=== PATIENT | male | born 1935 | race Caucasian/White ===

== ENCOUNTER 2020-02-01 11:33 | Inpatient (IN) | payer MEDICARE, OTHER ==
[~2020-02-01 11:33] MED LIST: Heparin 10,000 UNITS/ 10 ML VIAL ONE
[2020-02-01 12:21] LABS: Hemoglobin 12.5 g/dL (14.0-18.0); Mean Corpuscular HGB CONC 31.5 g/dL (32.0-36.0); Mean Corpuscular Hemoglobin 33.6 pg (27.0-31.0); Mean Platelet Volume 9.4 fL (7.4-10.4); Platelet Count 263 thou/uL (130-400); RBC Distribution Width 14.4 % (11.5-14.5); Red Blood Cell (RBC) Count 3.71 mill/uL (4.70-6.10); White Blood Cell (WBC) Count 11.2 thou/uL (4.8-10.8)
[2020-02-01 12:22] LABS: #Eosinphils 0.2 thou/uL (0.0-0.7); #Monocytes 0.8 thou/uL (0.11-0.59); #Neutrophils 9.2 thou/uL (1.40-6.50); %Basophils 0.4 % (0.0-1.0); %Eosinophils 1.7 % (0.0-10.0); %Lymphocytes 8.8 % (21.0-51.0); %Monocytes 7.4 % (0.0-10.0); %Neutrophils 81.8 % (42.0-75.0)
--- NOTE | 2020-02-01 12:29 | RAD ---
EXAM: CHEST ONE VIEW HISTORY: Altered mental status. COMPARISON: 01/12/2020 FINDINGS: Cardiac silhouette is magnified by projection but stable in size. Pulmonary vasculature is within nor mal limits. There is a suggested nodular density at the right lung base on prior exam which has a less nodular appearance, but parenchymal airspace opacity is again seen at the right lung base which could be related to atelectasis or pneumonitis. Follow-up to resolution is recommended. The left lung remains clear. No other interval change IMPRESSION: Patchy parenchymal airspace opacity right lung base. This may represent volume loss or pneumonitis. F ollow-up to resolution is recommended. A more nodular opacity was seen on the prior exam, but this nodular opacity is not appreciated on today's exam.
--- NOTE | 2020-02-01 12:31 | RAD ---
Exam: XR Foot Rt 2 View HISTORY: Large red warm mass dorsal right foot. Fever. COMPARISON: 01/12/2020 FINDINGS: The toes are held in flexion which limits evaluation. No fracture or definite dislocation is apprecia eugenio. Subcutaneous soft tissue swelling about the foot which is greater dorsally has improved. More focal area of soft tissue swelling distal dorsal forefoot does persist. No other interval change. IMPRESSION: 1. Improvement in subcutaneous soft tissue swelling about the foot and ankle. Prominent area of soft tissue swelling dorsal aspect of the forefoot is again seen, but this has also improved. 2. No acute osseous abnormality visualized.
[2020-02-01 12:32] LABS: Bicarbonate (HCO3v) 18.9 mmol/L (22.0-28.0); CO2 Tension (PvCO2) 43.3 mmHg (40.0-50.0); Calcium, Ionized 0.94 mmol/L (1.15-1.33); Chloride 109 mmol/L (98-107); Hemoglobin - Calc 11.2 g/dL (14.0-18.0); Potassium 6.8 mmol/L (3.5-5.1); Sodium 135 mmol/L (138-145); T. Carbon Dioxide 20.2 mmol/L (22.0-28.0); vO2 Saturation-calc 57.9 % (60.0-85.0)
[2020-02-01 12:37] LABS: MDiff Complete? YES; Macrocytosis SLIGHT = 6-15 cells (100X) (0-5/hpf); Platelet Morphology Comment Appears Adequate; Polychromasia SLIGHT = 2-3 cells (100X) (0-2/hpf)
[2020-02-01 12:47] LABS: ALT (SGPT) 22 U/L (8-55); AST (SGOT) 19 U/L (5-34); Albumin 2.7 g/dL (3.4-4.8); Alkaline Phosphatase 116 U/L (40-110); Anion Gap 20 mmol/L (10-20); Bilirubin, Total 0.3 mg/dL (0.2-1.2); Calc. Creatinine Clearance 0 mL/min (70-130); Calcium 7.7 mg/dL (7.8-10.44); Carbon Dioxide 18 mmol/L (23-31); Chloride 106 mmol/L (98-107); Estimated GFR-MDRD 7; Glucose 121 mg/dL (83-110); Protein, Total 5.7 g/dL (5.8-8.1); Sodium 137 mmol/L (136-145)
[2020-02-01 13:02] LABS: BUN (Urea Nitrogen) 137 mg/dL (8.4-25.7)
[2020-02-01 13:03] LABS: Potassium 7.1 mmol/L (3.5-5.1)
[2020-02-01] MEDS ORDERED: HumaLOG 300 UNITS/3 ML VIAL ONE (13:11)
[2020-02-01] MEDS ORDERED: Vancomycin 1 GM/200 ML BAG ONE (13:11)
[2020-02-01] MEDS ORDERED: Insulin Regular 300 UNITS/3 ML VIAL ONE (13:13)
[2020-02-01] MEDS ORDERED: Cefepime 2 GM VIAL ONE (13:14)
[2020-02-01] MEDS ORDERED: Dextrose 50% Abboject 50 ML SYRINGE ONE (13:14)
[2020-02-01] MEDS ORDERED: Calcium Gluc 4.6 MEQ/10 ML (100 MG/ML) ONE (13:14)
[2020-02-01] MEDS ORDERED: Sodium Bicarb 50 MEQ/50 ML Abboject 8.4% SYRINGE ONE (13:14)
[2020-02-01] MEDS ORDERED: Norepinephrine 8 MG/0.9% NS 250 ML ONE ×2 (13:22→21:45)
--- NOTE | 2020-02-01 13:26 | CT ---
CT HEAD WITHOUT CONTRAST: INDICATION: Mental status change. COMPARISON: Comparison is made to recent head CT of 01/12/2020. FINDINGS: Cortical atrophy. Encephalomalacia of the right frontal lobe again noted. Ventricles remain normal size. Ischemic changes in the white matter with old lacunar infarct in the left basal ganglia again noted. No acute mass, infarct, or hemorrhage. IMPRESSION: No acute process. Stable chronic findings. POS: OFF
[2020-02-01] MEDS ORDERED: Ketamine 50 MG/ML (10ML VIAL) ONE (13:29)
[2020-02-01 14:15] LABS: Actual Bicarbonate (HCO3a) 17.5 mEq/L (22-28); Analyzer IN Cardio ER; Base Excess (BEa) -11.4 mEq/L (-2.0 to +3.0); CO2 Tension 53.4 mmHg (35.0-45.0); Calcium, Ionized (arterial) 1.13 mmol/L (1.12-1.30); Carboxyhemoglobin (COHb) 0.3 gm% (0.0-3.0); Hemoglobin (Hb) 10.7 g/dL (14.0-18.0); O2 Tension (PaO2), arterial 311.1 mmHg (> 60.0); Potassium - ABG Lab 5.84 mmol/L (3.70-5.30)
[2020-02-01 14:17] LABS: Puncture Site RRA; pH, Arterial 7.13 (7.35-7.45)
[2020-02-01 14:50] LABS: Bacteria/HPF None Seen HPF (None Seen); Bilirubin Negative (Negative); Blood, Urine Trace (Negative); Clarity Clear (Clear); Glucose, Urine (Dipstick) Normal (Negative); Ketone, Urine Negative (Negative); Leukocyte 500 Leu/uL (Negative); Nitrite Negative (Negative); Protein, Urine (Dipstick) Negative (Neg-Trace); RBC/HPF 0-3 HPF (0-3); Specific Gravity, Urine 1.015 (1.002-1.036); Squamous Epithelial 0-3 HPF (0-3); Urobilinogen Normal mg/dL (Less than 2); WBC/HPF 0-3 HPF (0-3)
[2020-02-01 16:35] LABS: HBSAB Concentration Less than 8.00 mIU/mL; HBSAg Index 0.14 S/CO (0-0.99); Hep B Core Total Ab Non-Reactive (NonReactive); Hep B Core Total Index 0.05 S/CO (0-0.79); Hep B Surf AB Non-Reactive (NonReactive); Hep B Surf Ag Non-Reactive S/CO (NonReactive); Hep C IgG Ab Non-Reactive (NonReactive); Hep C Index 0.04 S/CO (0-0.79)
[2020-02-01] MEDS ORDERED: Ondansetron ODT 4 MG TAB PO PRN (18:02)
[2020-02-01] MEDS ORDERED: HumaLOG 300 UNITS/3 ML VIAL SC PRN ×2 (18:02)
[2020-02-01] MEDS ORDERED: Guaifenesin DM 100-10/5 ML UDCUP PO PRN (18:02)
[2020-02-01] MEDS ORDERED: Dextrose 5% in Water 1,000 ML IV PRN (18:02)
[2020-02-01] MEDS ORDERED: Ondansetron PF 4 MG/2 ML Vial IVP PRN (18:02)
[2020-02-01] MEDS ORDERED: Dextrose 50% Abboject 50 ML SYRINGE SLOW IVP PRN (18:02)
[2020-02-01] MEDS ORDERED: Acetaminophen 650 MG Suppository PR PRN (18:02)
[2020-02-01] MEDS ORDERED: Acetaminophen 325 MG TAB PO PRN (18:02)
--- NOTE | 2020-02-01 18:07 | HP ---
PRIMARY CARE PHYSICIAN: Dr. Fink. CHIEF COMPLAINT: Altered mental status. HISTORY OF PRESENT ILLNESS: This is an 84-year-old white male, [facility] resident of [facility] in [place], [place]. He presented to the emergency room with altered mental status. All history is taken from the ER physician in the chart. The patient reportedly had progressive altered mental status over several days, and was being treated in an in the [facility] for urinary tract infection with penicillin. The patient reportedly refused to take his medications this morning and became exceptionally somnolent at which point he was transferred to the hospital. Blood sugar was 180 prior to transport. When he arrived to the emergency room, the patient arrived oriented only to himself, became more somnolent in the emergency room. His vital signs initially were stable aside from some mild tachycardia. He had blood work drawn and this showed severe new renal failure. Normal creatinine usually around 1, now 7.1 and his potassium was 7.1, as well. At this point, the patient also became hypotensive. Blood pressures dropped into the 60 systolic. He was given 2 L normal saline and started on a little bit of Levophed peripherally. He had decreased mentation at that time and there was consideration of intubating him. His medical power of document review attorney, his stepson was contacted and stepson decided to make him do not attempt resuscitation. However, he okayed continue use of Levophed and vaso active drugs. The patient's blood pressure did improve after the saline. The patient was also given albuterol, dextrose, insulin and calcium gluconate. Bicarb 1 amp was given as well and a bicarb drip was started. Dr. Juarez of Nephrology was consulted by the emergency room and he is planning on doing dialysis in the room. The patient was also given cefepime and vancomycin. His urine did not look specifically infected. His white count was only mildly elevated at 11.2. However, given the elevated white count, the tachycardia and the acute renal failure there is concern for possible sepsis. Blood and urine cultures were drawn prior to the antibiotics and a Trialysis catheter was placed in the groin by the emergency room physician. REVIEW OF SYSTEMS: Unable to obtain secondary to the patient's mental status. PAST MEDICAL HISTORY: Obtained from the chart. 1. Diabetes mellitus type 2 with oral hypoglycemics and insulin sliding scale. 2. Congestive heart failure, undetermined type. 3. Hypertension. 4. Previous stroke. 5. The patient has no history of renal disease. 6. Lymphedema. 7. Atrial fibrillation. 8. Gout. 9. Benign prostatic hyperplasia. 10. Gastroesophageal reflux disease. PAST SURGICAL HISTORY: None. SOCIAL HISTORY: No tobacco, alcohol, or illicit drug use known. The patient is currently in [facility]. He has now been made a [id number] resuscitation. His stepson is his medical decision maker. His name is John Lua. Family history is unknown. ALLERGIES: NO KNOWN DRUG ALLERGIES. CURRENT MEDICATIONS: Per [facility] chart. 1. Allopurinol 300 mg daily. 2. Aspirin 81 mg daily. 3. Atorvastatin 40 mg daily. 4. Clopidogrel 75 mg daily. 5. Famotidine 20 mg daily. 6. Furosemide 20 mg daily. 7. Glipizide 5 mg twice a day. 8. Humalog sliding scale. 9. Lisinopril 5 mg daily. 10. Magnesium oxide 400 mg daily. 11. Metoprolol tartrate 25 mg two times a day. 12. Penicillin VK 250 mg by mouth four times a day. 13. Tamsulosin 0.4 mg daily. 14. Tramadol as needed. 15. Zoloft 200 mg daily. PHYSICAL EXAMINATION: VITAL SIGNS: Blood pressure 114/84, pulse 82, respirations 26, temperature not obtained, O2 saturation 98% on 4 L nasal cannula and had dropped to 84% one time before the non-rebreather was put, now he has been titrated back down to 4 L. GENERAL: This is a well-developed white male, who is snoring loudly, does not respond to voice, but does respond to painful stimulation and he is moving both of his arms a little bit and his face and keeps his eyes clamped close. He is not following commands. HEENT: Pupils equal, round, and reactive to light. Oropharynx, very dry mucous membranes. No lesions noted. NECK: Supple. No lymphadenopathy. No thyroid nodules or enlargement noted. No JVD noted. HEART: Irregularly irregular rhythm with controlled rate. No murmurs, rubs or gallops. LUNGS: Clear to auscultation bilaterally. No wheezes, crackles, or rhonchi. ABDOMEN: Soft, nontender to palpation. Normoactive bowel sounds. No hepatosplenomegaly or other masses. EXTREMITIES: No clubbing or cyanosis or edema. The patient does have a large what appears to be hematoma on the top of his right foot with a skin abrasion on the top of that. This apparently was there earlier in the month when he was seen at the [facility]. It does not appear acutely infected. SKIN: The patient has multiple skin tears throughout. NEUROLOGIC: The patient seems to be moving all of his extremities equally, though he is not moving them much just in response to pain. No focal findings. PSYCHIATRIC: He is somnolent and not oriented at all at this point, though apparently he could give his name when he first arrived in the emergency room. LABORATORY DATA: CBC with a white blood cell count of 11.2, and 81% neutrophils, hemoglobin 12.5, hematocrit 39.6, platelet count 263. ESR was elevated at 63. Blood gas shows a pH of 7.13, pCO2 of 53, PO2 of 300. Complete metabolic panel is notable for potassium of 7.1, carbon dioxide of 18, BUN of 137, creatinine of 7.17, glucose of 121, calcium of 7.7, alkaline phosphatase of 116, albumin of 2.7. C-reactive protein elevated at 9.3. Troponin negative x1. Lactic acid normal. Urinalysis with trace blood and 500 leuk esterase, but no white blood cells or bacteria. Chest x-ray: I did review the chest x-ray done in the emergency room along with the radiologist's report. It show patchy parenchymal airspace opacity in the right lung base, possibly a pneumonitis. CT of the brain done in the emergency room shows no acute intracranial process, revealed infarcts. X-ray of the right foot shows improvement in subcutaneous soft tissue swelling of the ankle and foot with a prominent area of soft tissue swelling in the dorsal aspect of the forefoot that has improved. No bony abnormalities. EKG done in the emergency room showed atrial fibrillation with controlled ventricular response, frequent premature ventricular complexes and a complete right bundle branch block and just nonspecific ST and T-wave changes. No peaking of the T-waves. ASSESSMENT: 1. Altered mental status secondary to uremia and possible sepsis. 2. Acute renal failure, dehydration versus acute tubular necrosis with hyperkalemia. The patient will need urgent dialysis. Dr. Juarez has been consulted and is planning on doing this in the room shortly. Trialysis catheter is in place. 3. Diabetes mellitus type 2. We will check fingerstick blood sugars q.a.c. and at bedtime. We will give some insulin sliding scale. 4. Hypertension. We will monitor blood pressures closely. They have rebounded now. We will get him off the Levophed as able. 5. Sepsis with shock. The patient is improved with fluids and Levophed. We are trying to get him off the Levophed as tolerated. 6. Gout. No evidence of acute flare this time. 7. Atrial fibrillation. We will continue aspirin once he can take p.o. 8. Deep venous thrombosis prophylaxis. We will hold off on anticoagulants for now due to his severe renal failure. I may be able to start some heparin once he gets stabilized. 9. Gastrointestinal prophylaxis. We will put the patient on Pepcid twice a day. CODE STATUS: The patient is a do not attempt resuscitation. His medical decision maker is his sariah Lua. Job ID: [id number]
[2020-02-01 18:31] LABS: Anion Gap 22 mmol/L (10-20); Calc. Creatinine Clearance 0 mL/min (70-130); Carbon Dioxide 17 mmol/L (23-31); Chloride 105 mmol/L (98-107); Estimated GFR-MDRD 8; Glucose 224 mg/dL (83-110); Sodium 137 mmol/L (136-145)
[2020-02-01 18:43] LABS: BUN (Urea Nitrogen) 137 mg/dL (8.4-25.7); Potassium 6.8 mmol/L (3.5-5.1)
[2020-02-01] MEDS ORDERED: Famotidine/PF 20 mg/2ml Vial SLOW IVP SCH (21:00)
[2020-02-01] MEDS: Sodium Bicarbonate 150 MEQ in D5 1/4 NS 1,000 ML IV SCH (22:07)
[2020-02-01] MEDS ORDERED: Famotidine/PF 20 mg/2ml Vial ONE (22:09)
[2020-02-02] MEDS: Sodium Bicarbonate 150 MEQ in D5 1/4 NS 1,000 ML IV SCH (03:01)
[2020-02-02 03:59] LABS: Anion Gap 23 mmol/L (10-20); BUN (Urea Nitrogen) 113 mg/dL (8.4-25.7); Calc. Creatinine Clearance 16 mL/min (70-130); Calcium 7.6 mg/dL (7.8-10.44); Carbon Dioxide 18 mmol/L (23-31); Chloride 101 mmol/L (98-107); Estimated GFR-MDRD 12; Glucose 327 mg/dL (83-110); Sodium 136 mmol/L (136-145)
[2020-02-02] MEDS ORDERED: Sodium Chloride 0.9% 250 ML IV SCH (04:00)
[2020-02-02 04:06] LABS: #Basophils 0.1 thou/uL (0.0-0.2); #Eosinphils 0.2 thou/uL (0.0-0.7); #Lymphocytes 1.3 thou/uL (1.20-3.40); #Monocytes 0.7 thou/uL (0.11-0.59); %Basophils 0.6 % (0.0-1.0); %Eosinophils 1.3 % (0.0-10.0); %Lymphocytes 9.1 % (21.0-51.0); Hemoglobin 9.9 g/dL (14.0-18.0); Mean Corpuscular HGB CONC 32.9 g/dL (32.0-36.0); Mean Corpuscular Hemoglobin 34.6 pg (27.0-31.0); Platelet Count 253 thou/uL (130-400); RBC Distribution Width 14.5 % (11.5-14.5); Red Blood Cell (RBC) Count 2.87 mill/uL (4.70-6.10); White Blood Cell (WBC) Count 14.3 thou/uL (4.8-10.8)
[2020-02-02] MEDS: Norepinephrine 8 MG/0.9% NS 250 ML IVPB SCH ×2 (07:22→15:30)
--- NOTE | 2020-02-02 07:57 | CON ---
DATE OF CONSULTATION: 02/02/2020 This is 35 minutes of critical care time. REASON FOR CONSULTATION: Hypotension and acute renal failure. HISTORY OF PRESENT ILLNESS: The history is obtained from reviewing the chart and speaking with the nursing staff. The patient is unable to give history for himself. He is an 84-year-old male from a retirement in [place]. He was admitted yesterday with altered mental status. In fact, he was recently in the hospital at [facility] with similar issues. On this admission, he has been found to have a grossly elevated potassium and creatinine. He was placed on Levophed for hypotension. He was also dialyzed last night for the acute renal failure and hyperkalemia. I am told that he has been made DNR by his stepson. PAST MEDICAL HISTORY: 1. Type 2 diabetes mellitus, requiring sliding scale insulin and oral hypoglycemics. 2. Congestive heart failure-diastolic. 3. Hypertension. 4. Stroke. 5. Lymphedema. 6. Atrial fibrillation. 7. Gout. 8. Prostatic hypertrophy. 9. Gastroesophageal reflux. 10. Recent admission for Enterococcus faecalis urinary tract infection. 11. Diastolic dysfunction by recent echo. 12. Soft tissue swelling on the right foot that was present during hospitalization a few weeks ago. MEDICATIONS: Prior to admission, 1. Allopurinol 300 mg daily. 2. Aspirin 81 mg daily. 3. Atorvastatin 40 mg daily. 4. Plavix 75 mg daily. 5. Pepcid 20 mg daily. 6. Furosemide 20 mg daily. 7. Glipizide 5 mg b.i.d. 8. Humalog sliding scale insulin. 9. Lisinopril 5 mg daily. 10. Magnesium oxide 400 mg daily. 11. Metoprolol 25 mg twice daily. 12. Penicillin VK 250 mg by mouth four times daily. 13. Tamsulosin 0.4 mg daily. 14. Tramadol as needed. 15. Zoloft 200 mg daily. PAST SURGICAL HISTORY: None. SOCIAL HISTORY: Does not smoke. Does not drink. He is a retirement resident. REVIEW OF SYSTEMS: Cannot be obtained secondary to the patient being obtunded. PHYSICAL EXAMINATION: VITAL SIGNS: Heart rate 107, O2 saturation 100%, respiratory rate 24, blood pressure 106/62, and temperature 97.6. GENERAL: The patient is obtunded, does groan. HEENT: Pupils 2 mm, reactive. Oropharynx, poor dentition on the lower arch. NECK: No adenopathy or JVD. LUNGS: Clear breath sounds. CARDIOVASCULAR: S1, S2. Tachycardic. No audible murmur. ABDOMEN: Soft and nontender to palpation. EXTREMITIES: Have a Rios catheter in. He has a 5 cm soft tissue swelling of the dorsum of his right foot, which has a bolus type lesion. He has a stage II decubitus over sacral area. LABORATORY DATA: COVID test is pending. White blood cell count 14.3, hematocrit 30, and platelet count 253. PH 7.13, pCO2 of 53, pO2 of 311 on 100% non-rebreather. Sodium 136, potassium 6.0, chloride 101, CO2 of 18, BUN 113, creatinine 4.7, glucose 327, lactate 1.5. C-reactive protein 9.3. Urinalysis showed leukocyte esterase. Chest x-ray shows some chronic changes in the right lower lobe, which were present during the last admission. ASSESSMENT: 1. Altered mental status. 2. Acute renal failure. 3. Diabetes mellitus type 2. 4. Possible sepsis syndrome. 5. History of gout. 6. History of atrial fibrillation. PLAN: This patient's prognosis for recovery is very poor as he is in terrible functional shape. I would highly advise trying to transition this patient to hospice or some type of palliative measures. In the meantime, he has been placed on antibiotics and Levophed by the primary service. His lisinopril and oral hypoglycemics should be held. His hyperglycemia should be treated with subcutaneous sliding scale insulin. Job ID: [id number]
[2020-02-02] MEDS ORDERED: Insulin Glargine 6 UNITS in Pre-Filled Syringe 1 EACH SC SCH (08:45)
[2020-02-02 11:14] LABS: SARS-CoV-2 MS2 Positive; SARS-CoV-2 N Gene Negative; SARS-CoV-2 S Gene Negative; SARS-CoV-2 by NAA Not Detected (NotDetected); SARS-CoV-2 orf1ab Negative
[2020-02-02] MEDS ORDERED: Vancomycin 1 GM in Premix Bag 1 BAG IVPB SCH (12:00)
[2020-02-02] MEDS ORDERED: Amiodarone 150 MG in Dextrose 5% in Water 100 ML IVPB SCH (12:15)
[2020-02-02] MEDS ORDERED: Digoxin 0.5 MG/2 ML AMP SLOW IVP SCH (12:15)
[2020-02-02] MEDS ORDERED: Amiodarone 450 MG in Dextrose 5% in Water 250 ML IVPB SCH (12:15)
[2020-02-02] MEDS ORDERED: Cefepime 0.5 GM, Admixture Fee 1 EACH in Sodium Chloride 0.9% 100 ML IVPB SCH (13:00)
[2020-02-02 13:10] LABS: Vancomycin, Random 6.3 ug/mL (See Comment)
[2020-02-02] MEDS ORDERED: Vancomycin HCl 1.25 GM in Sodium Chloride 0.9% 250 ML 250 ML IVPB SCH (14:00)
--- NOTE | 2020-02-02 14:42 | PDOC.HOSPP ---
- Subjective Encounter Date: 02/02/20 Encounter Time: 11:30 Subjective: pt up in bed non responsive - Objective Vital Signs & Weight: Vital Signs (12 hours) Temp 02/02/20 08:00 99.0 F 02/02/20 04:00 97.6 F Weight Weight 222 lb 10.67 oz Most Recent Monitor Data Heart Rate from ECG 141 NIBP 136/92 NIBP BP-Mean 106 Respiration from ECG 20 SpO2 100 I&O: 02/01/20 02/02/20 02/03/20 06:59 06:59 06:59 Intake Total 784 Output Total 344 280 Balance 440 -280 Result Diagrams: 02/02/20 02:47 02/02/20 02:47 Additional Labs: Accuchecks 02/02/20 02/02/20 13:33 06:38 POC Glucose 249 H 297 H Hospitalist ROS - Review of Systems Other: unable to obtain - Medication Medications: Active Medications Generic Name Dose Route Start Last Admin Trade Name Freq PRN Reason Stop Dose Admin Famotidine 20 mg 02/01/20 21:00 02/01/20 22:06 Famotidine/Pf 20 Mg/2ml Vial SLOW IVP 20 mg QPM NASEEM Administration Sodium Bicarbonate 150 meq/ 1,150 mls @ 125 mls/hr 02/01/20 15:30 02/02/20 03:01 Dextrose/Sodium Chloride IV 1,150 mls .[id number] NASEEM Administration Norepinephrine Bitartrate 250 mls @ 0 mls/hr 02/02/20 02:15 02/02/20 07:22 Levophed IVPB 250 mls INF NASEEM Administration Protocol Titrate Insulin Human Lispro 0 units 02/01/20 18:02 02/02/20 04:36 Humalog 300 Units/3 Ml Vial SC 5 unit .MILD SLIDING SCALE PRN Administration Mild Correctional Scale Sodium Chloride 10 ml 02/02/20 09:00 02/02/20 10:51 Flush - Normal Saline 10 Ml Syringe IVF Not Given Q12HR NASEEM - Exam Neck: negative: supple, symmetric, no JVD, no thyromegaly, no lymphadenopathy, no carotid bruit, JVD Heart: negative: RRR, no murmur, no gallops, no rubs, normal peripheral pulses, irregular, diminshed peripheral pulses, murmur present, II/IV, III/IV Respiratory: rhonchi Gastrointestinal: negative: soft, non-tender, non-distended, normal bowel sounds, no palpable masses, no hepatomegaly, no splenomegaly, no bruit, no guarding, no rigidity, tender to palpation, distended, diminished bowl sounds, voluntary guarding Extremities: 2+ LE edema Hosp A/P (1) Hyperkalemia Code(s): E87.5 - HYPERKALEMIA Status: Acute (2) Acute kidney injury Code(s): N17.9 - ACUTE KIDNEY FAILURE, UNSPECIFIED Status: Acute (3) Physical deconditioning Code(s): R53.81 - OTHER MALAISE Status: Acute (4) Diabetes Code(s): E11.9 - TYPE 2 DIABETES MELLITUS WITHOUT COMPLICATIONS Status: Chronic (5) HTN (hypertension) Code(s): I10 - ESSENTIAL (PRIMARY) HYPERTENSION Status: Chronic Qualifiers: (6) Obesity (BMI 30.0-34.9) Code(s): E66.9 - OBESITY, UNSPECIFIED Status: Chronic (7) Atrial fibrillation with RVR Code(s): I48.91 - UNSPECIFIED ATRIAL FIBRILLATION Status: Acute - Plan pt underwent emergent dialysis for hyperkalemia. pt now in afib rvr will start pt on amio. will continue abx but his overall prognosis is poor. will get palliative to get hospice for this pt.
[2020-02-02 15:42] VITALS: TEMP 99.3
[2020-02-02] MEDS ORDERED: FLU VACC QS2020-21(65YR UP)/PF 240 MCG/0.7 ML SYRINGE IM ONE (21:00)
[2020-02-03] MEDS ORDERED: Insulin Glargine 6 UNITS in Pre-Filled Syringe 1 EACH SC SCH (09:00)
--- NOTE | 2020-02-03 14:34 | DIS ---
DATE OF ADMISSION: 02/01/2020 DATE OF DISCHARGE: 02/02/2020 DISCHARGE DIAGNOSES: As of the following; 1. Hyperkalemia. 2. Acute kidney injury. 3. Hypertension. 4. Diabetes. 5. Atrial fibrillation. 6. Acute metabolic encephalopathy. 7. Sepsis with shock. HOSPITAL COURSE: The patient is an 84-year-old male, who initially presented to the hospital with change in mental status from a [facility]. At this time, he was noted to have a potassium of 7.1 and a significantly elevated creatinine from his baseline. The patient was admitted into the ICU, was started on a Levophed drip due to hypotension. The patient then underwent emergent dialysis and Nephrology was consulted. The patient continued to remain altered, at this time, family decided to withdraw care and wanted the patient to become hospice. The patient also was put on broad-spectrum antibiotics. His hospital course was complicated with atrial fibrillation with RVR. At this time, he was put on amiodarone, which controlled his heart rhythm. The patient's family at the bedside decided to make the patient hospice. Questions were answered. At this time, the patient was made comfort measures and was discharged to the oncology unit. Job ID: [id number]
--- NOTE | 2020-02-19 11:41 | EKG ---
Test Reason : Blood Pressure : / mmHG Vent. Rate : 097 BPM Atrial Rate : 088 BPM P-R Int : 000 ms QRS Dur : 146 ms QT Int : 390 ms P-R-T Axes : 000 -03 007 degrees QTc Int : 495 ms Atrial fibrillation with premature ventricular or aberrantly conducted complexes Right bundle branch block Abnormal ECG Confirmed by IGNACIO NIELSON M.D. ([id number]), video tape editor OSWALDO KING ([id number]) on 02/19/2020 11:41:15 AM Referred By: Confirmed By:IGNACIO NIELSON M.D.
== END 2020-02-02 16:33 | disposition expired | DRG 871 ==
LOC: ERS 11:33 → ERHOLD 16:50 → CCU 02-02 01:37
PROVIDERS: ADMIT Emergency Medicine; ATTEND Emergency Medicine
PROC: 5A1D70Z Performance of Urinary Filtration, Intermittent, Less than 6 Hours Per Day (ICD-10-PCS; principal; 2020-02-01)
PROC: 3E033XZ Introduction of Vasopressor into Peripheral Vein, Percutaneous Approach (ICD-10-PCS; 2020-02-01)
PROC: 06HY33Z Insertion of Infusion Device into Lower Vein, Percutaneous Approach (ICD-10-PCS; 2020-02-01)
DX: A41.9 Sepsis, unspecified organism (principal); R65.21 Severe sepsis with septic shock; N17.0 Acute kidney failure with tubular necrosis; G93.41 Metabolic encephalopathy; Z51.5 Encounter for palliative care; Z66 Do not resuscitate; I50.32 Chronic diastolic (congestive) heart failure; N39.0 Urinary tract infection, site not specified; I48.91 Unspecified atrial fibrillation; M10.9 Gout, unspecified; K21.9 Gastro-esophageal reflux disease without esophagitis; I11.0 Hypertensive heart disease with heart failure; E11.65 Type 2 diabetes mellitus with hyperglycemia; N40.0 Benign prostatic hyperplasia without lower urinary tract symptoms; E66.9 Obesity, unspecified; E86.0 Dehydration; E87.5 Hyperkalemia; Z86.73 Personal history of transient ischemic attack (TIA), and cerebral infarction without residual deficits; Z79.02 Long term (current) use of antithrombotics/antiplatelets; Z79.4 Long term (current) use of insulin; Z79.82 Long term (current) use of aspirin; Z79.899 Other long term (current) drug therapy; Z79.891 Long term (current) use of opiate analgesic; Z68.30 Body mass index [BMI] 30.0-30.9, adult
CPT/HCPCS: 36415; 36416; 36556; 51702; 70450; 71045; 80048; 80053; 80202; 81003; 81015; 82330; 82803; 82805; 83605; 84484; 85025; 85652; 86140; 86704; 86706; 86803; 87040; 87086; 87340; 87635; 90935; 93005; 96365; 96366; 96367; 96368; 96375; 99292; G0257; J0282; J0692; J1160; J1642; J1644; J1815; J2001; J3370; J7042; J7070; S0028; U0003

== ENCOUNTER 2020-02-02 16:38 | Inpatient (IN) | payer OTHER ==
[2020-02-02 17:00] VITALS: BP 125/62; TEMP 97.8
[2020-02-02] MEDS ORDERED: Lorazepam 2 MG/ML VIAL SLOW IVP PRN (17:33)
[2020-02-02] MEDS: Lorazepam 2 MG/ML VIAL SLOW IVP SCH ×2 (17:44→21:34)
[2020-02-02] MEDS ORDERED: Scopolamine 1.5 mg/72 hour Patch TOP PRN (17:45)
[2020-02-02] MEDS ORDERED: Morphine 2 MG/ML VIAL SLOW IVP PRN (17:56)
[2020-02-02] MEDS: Morphine 4 MG/ML VIAL SLOW IVP SCH ×4 (18:00→23:56)
[2020-02-02 20:06] VITALS: BMI 30.1
--- NOTE | 2020-02-03 14:59 | DIS ---
DATE OF ADMISSION: 02/02/2020 DATE OF DISCHARGE: 02/03/2020 Discharge/ note. [facility] inpatient hospice service admitted 02/01. Date of is also 02/01. ADMIT DIAGNOSES: Congestive heart failure exacerbation; end-stage renal disease, on hemodialysis. HOSPITAL COURSE: The patient was admitted to the hospital and transitioned over to inpatient hospice as he was not doing well on this treatment from hospital and family decided to going to hospice, but did not want to go home. He had other comorbidities including atrial fibrillation, hypertension, history of CVA, type 2 diabetes, history of anasarca renal failure, on hemodialysis. The patient peacefully in no pain. Family was at bedside. Job ID: [id number]
--- NOTE | 2020-02-14 02:37 | HP ---
The patient was admitted to the hospital on 01/31. Altered mental status, CHF exacerbation with end-stage renal disease, was not doing well, was transitioned over to the inpatient hospice service and he was actively dying on vasopressors. All saving modalities had been stopped including dialysis. His symptoms have been managed to best of our abilities and keep him comfortable. For further history, see his hospital H and P. Job ID: [id number]
== END 2020-02-03 01:22 | disposition expired | DRG 951 ==
LOC: ONC 16:38
PROVIDERS: ADMIT Family Medicine; ATTEND Family Medicine
DX: Z51.5 Encounter for palliative care (principal); A41.9 Sepsis, unspecified organism; R65.21 Severe sepsis with septic shock; N17.0 Acute kidney failure with tubular necrosis; N18.6 End stage renal disease; I13.2 Hypertensive heart and chronic kidney disease with heart failure and with stage 5 chronic kidney disease, or end stage renal disease; I50.9 Heart failure, unspecified; I48.91 Unspecified atrial fibrillation; M10.9 Gout, unspecified; N40.0 Benign prostatic hyperplasia without lower urinary tract symptoms; K21.9 Gastro-esophageal reflux disease without esophagitis; E87.5 Hyperkalemia; E86.0 Dehydration; Z86.73 Personal history of transient ischemic attack (TIA), and cerebral infarction without residual deficits; Z79.01 Long term (current) use of anticoagulants; Z79.82 Long term (current) use of aspirin; Z79.4 Long term (current) use of insulin; Z79.899 Other long term (current) drug therapy; Z79.2 Long term (current) use of antibiotics; E11.22 Type 2 diabetes mellitus with diabetic chronic kidney disease; Z99.2 Dependence on renal dialysis
CPT/HCPCS: J2060; J2270